=== PATIENT | male | born 1995 | race African-American/Black ===

== ENCOUNTER 2018-03-25 17:55 | Emergency (ER) | payer OTHER ==
[~2018-03-25] VITALS: Ht 182.9 cm; Wt 55.1 kg
[~2018-03-25 17:55] MED LIST: ACET-1256 PO; ACET-1311 PO
[2018-03-25 18:09] VITALS: BP 135/79; PULSE 66; TEMP 36.6; O2SAT 100; Ht 182.9 cm; Wt 55.1 kg
[2018-03-25] MEDS ORDERED: ACETAMINOPHEN 325 MG TAB PO STA (18:21)
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
== END 2018-03-25 21:04 | disposition home or self-care (01) ==
LOC: C.EDB 17:56 → C.EDD 21:04
DX: R51 Headache (principal); M54.2 Cervicalgia; V43.62XA Car passenger injured in collision with other type car in traffic accident, initial encounter